=== PATIENT | female | born 1960 | race Caucasian/White ===

== ENCOUNTER 2022-05-23 14:08 | Emergency (ER) | payer OTHER ==
[~2022-05-23] VITALS: Ht 154.9 cm; Wt 81.6 kg
--- NOTE | 2022-05-23 14:50 | NUR ---
PT IN ROOM AND AMBULATORY COVID POSITIVE PER PT'S STATEMENTS. 96% ON ROOM AIR NO SOB REPORTED.
[2022-05-23 15:58] VITALS: BP 136/75
== END 2022-05-23 15:50 | disposition home or self-care (01) ==
LOC: ER 14:22
DX: R05.9 Cough, unspecified (principal)
CPT/HCPCS: 71045-TC